=== PATIENT | male | born 1990 | race Caucasian/White ===

== ENCOUNTER 2018-10-10 08:29 | Emergency (ER) | payer OTHER ==
[~2018-10-10] VITALS: Ht 190.5 cm; Wt 72.6 kg
[2018-10-10 08:37] VITALS: BP_SYST 120
[2018-10-10] MEDS ORDERED: LIDOCAINE 1% 10 MG/ML, 20 ML MDV INJ ONE (09:00)
[2018-10-10 09:19] VITALS: BP_SYST 120
== END 2018-10-10 09:18 | disposition home or self-care (01) ==
LOC: SED 08:29
DX: S61.412A Laceration without foreign body of left hand, initial encounter (principal); F17.200 Nicotine dependence, unspecified, uncomplicated; W26.8XXA Contact with other sharp object(s), not elsewhere classified, initial encounter; Y93.89 Activity, other specified; Y92.69 Other specified industrial and construction area as the place of occurrence of the external cause; Y99.8 Other external cause status
CPT/HCPCS: 12002; 99283; J2001